=== PATIENT | male | born 1995 | race Caucasian/White ===

== ENCOUNTER 2024-08-19 01:06 | Emergency (ER) | payer OTHER ==
[~2024-08-19] VITALS: Ht 182.9 cm; Wt 98.1 kg
[2024-08-19 01:18] VITALS: TEMP 98.2
[2024-08-19 01:24] VITALS: BP 131/72
[2024-08-19] MEDS ORDERED: ALBU18HF2 IH (03:16)
--- NOTE | 2024-08-19 03:16 | Physician Documentation ---
HPI ~ General Chief Complaint: Medication Refill Stated Complaint: ASTHMA Time Seen by MD: 03:08 History of Present Illness HPI Comments Patient presents to the emergency room requesting inhaler. He has history of asthma in his not had his inhaler. He has been suffering for at least two weeks regarding his symptoms. No recent steroid use. No fevers. Review of Systems ROS All review of systems negative except as per HPI Physical Exam Physical Exam Vital Signs: Temperature: 98.2, Heart Rate: 86, Respiratory Rate: 16, BP: 131/72, Pulse Oximetry: 97, Weight: 98.100 Oxygen Flow Rate: 0 Physical Exam General: Patient is awake, alert, oriented x4 in no acute distress Head: Normocephalic and atraumatic. Eyes: Conjunctival normal. EOMI. PERRL. ENT: Mucous membranes moist. Neck: Supple, trachea is midline. Chest: Diffuse bilateral wheezing present. There is no accessory muscle use or retractions. Cardiac: RRR without murmurs, gallops, or rubs. Progress Results/Orders Results/Orders Orders - CECIL VARGAS MD Svn Treatment (08/19/24 03:11) Ipratropium/Albuterol Nebule (Ipratrop/A (08/19/24 03:15) Triamcinolone Acet 40mg/Ml Inj (Kenalog- (08/19/24 03:15) Vital Signs 08/19/24 08/19/24 01:18 01:24 Temp 98.2 Pulse 90 86 Resp 16 16 B/P (MAP) 131/83 131/72 (91) Pulse Ox 95 97 O2 Flow Rate 0 0 Medical Decision Making Findings Patient presents to the emergency room reporting asthma exacerbation as per HPI. Differentials included but are not limited to asthma, pneumonia, viral sy ndrome, fluid overload. Given history and response to treatment he had not feel further investigation is warranted. We will refill his albuterol with instructions to follow up with his doctor. Kenalog administered. Vital signs stable Departure Disposition: HOME / SELF CARE / HOMELESS Impression: Primary Impression: Asthma exacerbation Condition: Improved Discharge Instructions: Asthma Attack Prevention, Adult Referrals: NO PRIMARY CARE PROVIDER (PCP) Prescriptions Albuterol Sulfate (Ventolin Hfa) 90 Mcg Hfa.aer.ad 2 PUFFS IH 5XD, #1 EACH Prov: CECIL VARGAS MD 08/19/24 Education Educated: Patient Educated regarding: diagnosis, treatment, need for follow up Signature Scribe Signature: No scribe Attestation: The note accurately reflects work and decisions made by me.Cecil Vargas MD 08/19/24 03:16 CECIL VARGAS MD August 19, 2024 03:16
[2024-08-19] MEDS: triamcinolone acetonide 40mg/ml inj IM ONE (03:18)
[2024-08-19 03:20] VITALS: PULSE 77; RESP 19; O2SAT 99
[2024-08-19] MEDS: ipratropium/albuterol 3ml nebule NEB ONE (03:21)
[2024-08-19 03:25] VITALS: PULSE 78; RESP 18; O2SAT 98
== END 2024-08-19 03:30 | disposition home or self-care (01) ==
LOC: ER 01:08
DX: J45.901 Unspecified asthma with (acute) exacerbation (principal); Z76.0 Encounter for issue of repeat prescription
CPT/HCPCS: 94640; 96372; 99283; J3301; 94760